=== PATIENT | female | born 1945 | race Asian ===

== ENCOUNTER 2024-07-05 09:20 | Emergency (ER) | payer OTHER, SELFPAY ==
[2024-07-05 09:29] VITALS: BP 185/97
--- NOTE | 2024-07-05 09:33 | ED.GENMED ---
ED Provider Triage
<Wilber Chavez PA-C - Last Filed: 07/05/24 09:33>
-
Patient seen by provider in Triage?: Seen in Triage
Attestation: A medical screening examination has been initiated by a qualified medical provider. Based on the assessment performed at this time, it has been determined that an emergent medical condition may exist and the patient has been informed
that further medical evaluation and possible additional diagnostic testing may be needed.
HPI: 78-year-old otherwise healthy female presents for evaluation after a minor fall in the bathroom this morning. She struck her buttocks on the tub and ultimately hit her head on the wall. No LOC. Does not take blood thinners.
GENERAL: Alert , in no apparent distress
EYE: No visual abnormalities.
NECK: Trachea midline
ENT: No visible abnormalities.
LUNGS: No acute respiratory distress
NEUROLOGICAL: Alert and oriented
SKIN: Skin intact. No visible changes.
MUSCULOSKELETAL: Moving extremities normally
PSYCH: Normal and appropriate interaction.
This is a medical evaluation conducted in person to initiate diagnostic evaluation and provide initial therapeutics. Please see further documentation by the treating clinician.
History of Present Illness
<Wilber Chavez PA-C - Last Filed: 07/05/24 09:33>
General
Chief Complaint: Fall
Time Seen by Provider: 07/05/24 09:57
<Helen Lin MD, Resident - Last Filed: 07/05/24 12:39>
General
Source: patient and family
Exam Limitations: none
History of Present Illness
History of Present Illness:
78yo F with PMH HLD, breast cancer who presents from home to ED for evaluation after a fall. This morning, her grandson ran over to her and hugged her-- she then fell backwards and hit the back of head on the wall, and her bottom landed on the tub.
She did not lose consciousness. Currently reports tender scalp where she struck her head, pain in tailbone, blurry vision, slight dizziness. Denies dizziness/lightheadedness, palpitations, presyncopal symptoms prior to falling.
Past History
<Helen Lin MD, Resident - Last Filed: 07/05/24 12:39>
Past History
ED Past Medical History: Cancer (breast cancer), HTN and Hypercholesterolemia
ED Past Surgical History: and Other (L mastectomy )
Patient has exhibited threatening behavior?: No
Social History
Tobacco: Non-smoker
Alcohol: Occasional
Drug: None
Family History
Family History: Other (noncontributory)
Review of Systems
<Helen Lin MD, Resident - Last Filed: 07/05/24 12:39>
Review of Systems
Allergies reviewed?: Yes
Constitutional: Reports no symptoms; Denies fever or chills
EENT: Reports no symptoms
Respiratory: Reports no symptoms; Denies cough or trouble breathing
Cardiac: Reports no symptoms; Denies chest pain, palpitations or syncope
ABD/GI: Reports no symptoms; Denies abdominal pain, nausea, vomiting, diarrhea, constipated, bloody stools or black stools
: Reports no symptoms
Musculoskeletal: Reports other (see HPI)
Skin: Reports no symptoms
Neurological: Reports dizzy; Denies headache, weakness or numbness
Endocrine: Reports no symptoms
Hematologic/Lymphatic: Reports no symptoms
Psychiatric: Reports no symptoms
Phy Exam
<Helen Lin MD, Resident - Last Filed: 07/05/24 12:39>
Physical Exam
Physical Exam:
head: Normocephalic. No lacerations, abrasions, ecchymosis. Scalp tender to palpation right occiput.
neck: Supple, no midline tenderness. ROM intact, nonpainful.
buttocks: No lacerations, abrasions, ecchymosis. Right medial buttocks with point tenderness to palpation, no midline tenderness.
General Physical Exam
General Presentation: well appearing and no apparent distress
General age: appears stated age
General Skin: warm and dry
General Habitus: normal and elderly
General Mental: alert
General Hydration: appears well hydrated
Cardiovascular Exam
Cardiovascular Exam: regular rate/rhythm, no edema and no murmur
Pulmonary Exam
Pulmonary Exam: lungs clear, no respiratory distress, no crackles, no rhonchi, no wheezing and no cough
Oxygen Status: room air
Gastrointestinal Exam
Gastrointestinal Exam: non tender, soft and non distended
Neurological Exam
Neurological Exam: alert, no motor deficits, no sensory deficits, speech normal and normal gait
Skin Exam
Skin Exam: normal color and warm/dry
Psychiatric Exam
Psychiatric Exam: normal mood/affect
Course
<Wilber Chavez PA-C - Last Filed: 07/05/24 09:33>
Orders/Labs/Results
Orders:
Orders
07/05/24 09:33
CT Head W/o Iv Contrast Urgent
Comment:
Reason For Exam: fall head injury
CR Pelvis - 1 Or 2 Views Urgent
Comment:
Reason For Exam: fall, bilat gluteal pain
Vital Signs
Initial and Last Documented VS:
Initial Vital Signs
Temp Pulse Resp BP Pulse Ox
98.0 F 73 16 185/97 98
07/05/24 09:29 07/05/24 09:29 07/05/24 09:29 07/05/24 09:29 07/05/24 09:29
Last Documented Vital Signs
Temp Pulse Resp BP Pulse Ox
98.0 F 74 16 180/90 98
07/05/24 09:29 07/05/24 10:59 07/05/24 10:59 07/05/24 10:59 07/05/24 10:59
<Helen Lin MD, Resident - Last Filed: 07/05/24 12:39>
Orders/Labs/Results
Orders:
Orders
07/05/24 09:33
CT Head W/o Iv Contrast Urgent
Comment:
Reason For Exam: fall head injury
CR Pelvis - 1 Or 2 Views Urgent
Comment:
Reason For Exam: fall, bilat gluteal pain
Vital Signs
Initial and Last Documented VS:
Initial Vital Signs
Temp Pulse Resp BP Pulse Ox
98.0 F 73 16 185/97 98
07/05/24 09:29 07/05/24 09:29 07/05/24 09:29 07/05/24 09:29 07/05/24 09:29
Last Documented Vital Signs
Temp Pulse Resp BP Pulse Ox
98.0 F 74 16 180/90 98
07/05/24 09:29 07/05/24 10:59 07/05/24 10:59 07/05/24 10:59 07/05/24 10:59
<Helen Lin MD, Resident - Last Filed: 07/05/24 12:39>
MDM/Problems Addressed
Differential Diagnosis Includes:
s/p mechanical fall, head impact
No signs/symptoms of presyncope or cardiogenic/neurologic etiology of fall
MDM/Problems Addressed:
78yo F s/p mechanical fall
Will check head CT and pelvic xray
Pain currently minimal, patient declines analgesic/tylenol
If no acute pathology, anticipate discharge home
<Helen Lin MD, Resident - Last Filed: 07/05/24 12:39>
*Critical Care Note
Total Time (30-74mins, 75-104mins- exclusive of procedures): Not Applicable
<Helen Lin MD, Resident - Last Filed: 07/05/24 12:39>
Update Note
Update Note:
1030: On reevaluation, dizziness and blurry vision resolved.
1200: Head CT with no acute intracranial pathology/stoke/hemorrhage. Pelvic xray with no fracture. Stable for discharge home. Reviewed with patient and daughter at bedside.
ED Attending Note
<Wilber Chavez PA-C - Last Filed: 07/05/24 09:33>
-
Portions of this chart may have been created with voice recognition software.� Occasional wrong word or��sound alike� substitutions may have occurred due to the inherent limitations of voice recognition software.
Discharge Plan
Departure
Patient Disposition: Home (Routine Discharge)
Date of Disposition: 07/05/24
Time of Disposition: 12:07
Patient with high blood pressure during this ER visit?: Yes
Discharge Problem:
Fall, Head injury
Instructions: Minor Head Injury, Adult ED, BLOOD PRESSURE
Referrals:
[facility] [Other] - Next open appointment (Call your Primary Care Provider to schedule follow up appointment after being seen in the Emergency Room, and to recheck your blood pressure.)
Activity Restrictions/Additional Instructions:
You were seen in the Emergency Room for a fall and hitting your head.
The xray of your pelvis did not show any fractures. The CT of your head did not show any acute problems.
Please call your Primary Care Provider to schedule follow up appointment after being seen in ER and to recheck your blood pressure.
Return to Emergency Room for worsening symptoms such as confusion, headache, visual changes or new concerns.
Interventions
Interventions:
*Risk Screen - Suicide Last Done: 07/05/24 09:29
*General Assessment Last Done: 07/05/24 10:54
*Neglect/Abuse Screening Last Done: 07/05/24 09:29
ED- Fall Risk Assessment Last Done: 07/05/24 10:54
*ED COVID-19 Vaccine History Last Done: 07/05/24 10:54
*Nursing Disposition Last Done: 07/05/24 12:38
ED-Musculoskeletal Assessment Last Done: 07/05/24 10:54
ED- Neurological Assessment Last Done: 07/05/24 10:54
ED-Skin Assessment Last Done: 07/05/24 10:54
Discharge Date and Time
Discharge Date/Time: 07/05/24 12:38
Print Language: HEBREW
[2024-07-05 10:52] VITALS: BMI 21.7
[2024-07-05 10:59] VITALS: BP 180/90
== END 2024-07-05 12:38 | disposition home or self-care (01) ==
LOC: EMR 09:20
PROVIDERS: EMERGENCY PHYSICIAN Emergency Medicine
DX: S09.90XA Unspecified injury of head, initial encounter (principal); W22.01XA Walked into wall, initial encounter; E78.00 Pure hypercholesterolemia, unspecified; I10 Essential (primary) hypertension; Z90.12 Acquired absence of left breast and nipple
CPT/HCPCS: 99284; 70450; 72170